=== PATIENT | female | born 1955 | race Caucasian/White ===

== ENCOUNTER 2016-10-25 16:57 | Emergency (ER) | payer BC ==
[~2016-10-25] VITALS: Ht 162.6 cm; Wt 74.4 kg
[2016-10-25 18:17] VITALS: BP 131/89
== END 2016-10-25 18:17 | disposition home or self-care (01) ==
LOC: ED 16:57
DX: S91.011A Laceration without foreign body, right ankle, initial encounter (principal); I10 Essential (primary) hypertension; Z88.5 Allergy status to narcotic agent; W45.8XXA Other foreign body or object entering through skin, initial encounter; Y93.89 Activity, other specified; Y99.8 Other external cause status; Y92.89 Other specified places as the place of occurrence of the external cause
CPT/HCPCS: 90715